=== PATIENT | male | born 1965 | race Hispanic/Latino ===

== ENCOUNTER → 2018-02-14 | Day surgery (SDC) | payer SELFPAY ==
[~2018-02-14] MED LIST: ATORVASTATIN CA20 MG PO; BASAGLAR SQ; FENTANYL CITRATE/PF 100MCG/2 ML INJ ONE; LISINOPRIL-HCT1 EACH PO; METFORMIN HCL500 M2 PO; MIDAZOLAM HCL 2 MG/2 ML VIAL ONE; OR PHACO EYE KIT ONE; PREOP PHACO EYE KIT ONE
[2018-02-14 15:10] VITALS: BP 144/88
== END | disposition home or self-care (01) ==
LOC: OR 11:49
PROVIDERS: ATTEND Ophthalmology
DX: H25.11 Age-related nuclear cataract, right eye (principal); I10 Essential (primary) hypertension; E78.5 Hyperlipidemia, unspecified; E11.9 Type 2 diabetes mellitus without complications; Z79.84 Long term (current) use of oral hypoglycemic drugs; Z87.891 Personal history of nicotine dependence
CPT/HCPCS: 36415; 66984; 82948; J2250; V2632

== ENCOUNTER → 2018-03-14 | Day surgery (SDC) | payer SELFPAY ==
[2018-03-14 14:40] VITALS: BP 148/81
== END | disposition home or self-care (01) ==
LOC: OR 10:35
PROVIDERS: ATTEND Ophthalmology
DX: H25.12 Age-related nuclear cataract, left eye (principal); E11.9 Type 2 diabetes mellitus without complications; Z79.84 Long term (current) use of oral hypoglycemic drugs; I10 Essential (primary) hypertension
CPT/HCPCS: 36415; 82948; J2250; V2632